=== PATIENT | female | born 1975 | race Caucasian/White ===

== ENCOUNTER → 2017-02-03 | Outpatient (CLI) | payer OTHER ==
--- NOTE | 2017-02-03 12:34 | REP ---
LEFT ANKLE, FOUR VIEWS: HISTORY: Injury. There is no acute fracture or dislocation. The joint space is normal in appearance. An ossified density is present inferior to the medial malleolus. This represents ligamentous or tendon calcification. Soft tissue swelling is present over the lateral malleolus. IMPRESSION: There is no acute fracture or dislocation.
== END ==
LOC: M CLY 11:34
PROVIDERS: ATTEND Nurse Practitioner Family
DX: S99.912A Unspecified injury of left ankle, initial encounter (principal); Y92.89 Other specified places as the place of occurrence of the external cause; X58.XXXA Exposure to other specified factors, initial encounter

== ENCOUNTER → 2018-07-25 | Outpatient (CLI) | payer OTHER | LOC: M CLY 10:13 | DX: M51.37 Other intervertebral disc degeneration, lumbosacral region (principal); M51.34 Other intervertebral disc degeneration, thoracic region; M25.78 Osteophyte, vertebrae; M54.16 Radiculopathy, lumbar region | CPT/HCPCS: 72072; G0463 ==